=== PATIENT | female | born 1955 | race Caucasian/White ===

== ENCOUNTER 2018-07-11 14:06 | Inpatient (IN) | payer OTHER, BC ==
[~2018-07-11] VITALS: Ht 152.4 cm; Wt 69.4 kg
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
--- NOTE | 2018-07-11 15:06 | NUR ---
PT AMBULATORY TO AND FROM BATHROOM WITH STEADY GAIT, BACK IN ED GURNEY IN POSITION OF COMFORT, A/O X4, REPORTS DIZZINESS AND CHEST PAIN RESOLVING AND FEELS BETTER SINCE ARRIVAL TO ED, RESPS EVEN AND UNLABORED, SKIN WARM/DRY TO TOUCH, NO S/S OF DISTRESS NOTED. AT BEDSIDE.
[2018-07-11 15:16] LABS: BASOPHIL % 0.4 % (0-2); PLATELET COUNT 188 x10^3mcL (130-400); RED CELL DISTRIBUTION WIDTH 12.9 % (11.5-14.5)
--- NOTE | 2018-07-11 15:20 | NUR ---
PORTABLE X-RAY COMPLETED AT BEDSIDE.
[2018-07-11 15:29] LABS: CALCIUM 8.4 mg/dL (8.5-10.1); CARBON DIOXIDE 28.2 mmol/L (21-32); CHLORIDE SERUM 102 mmol/L (98-107); CREATININE SERUM 0.9 mg/dL (0.6-1.0); GFR1 > 60 mL/min; GLUCOSE SERUM 108 mg/dL (74-106); POTASSIUM SERUM 3.7 mmol/L (3.5-5.1); SODIUM SERUM 137 mmol/L (136-145)
[2018-07-11 15:33] LABS: ALBUMIN 3.9 g/dL (3.4-5.0); ALKALINE PHOSPHATASE 83 U/L (46-116); ALT/SGPT 22 U/L (14-59); AST/SGOT 19 U/L (15-37); BILIRUBIN TOTAL 0.31 mg/dL (0.20-1.00); TOTAL PROTEIN, SERUM 7.7 g/dL (6.4-8.2)
[2018-07-11] MEDS ORDERED: TEGRETOL200 MG PO (16:19)
[2018-07-11] MEDS ORDERED: NOR10 PO (16:19)
[2018-07-11] MEDS ORDERED: COZAAR100 MG PO (16:19)
[2018-07-11] MEDS ORDERED: WELSR PO (16:20)
[2018-07-11] MEDS ORDERED: PROPRANOLOL HCL40 MG PO (16:21)
[2018-07-11] MEDS ORDERED: CHOLESTYRAMINE1 PO1 (16:22)
[2018-07-11] MEDS ORDERED: PRE30 PO (16:22)
[2018-07-11 17:13] LABS: MAGNESIUM 2.3 mg/dL (1.8-2.4)
[2018-07-11 17:14] LABS: CHOLESTEROL/HDL RATIO 3.8
--- NOTE | 2018-07-11 17:32 | NUR ---
REPORT CALLED TO ANA LUBIN, PT TO BE ADMITTED TO TELE ROOM 235B. PT IN NO DISTRESS NOTED.
--- NOTE | 2018-07-11 17:46 | NUR ---
RECEIVED PT FROM ED [facility]IA [facility], CAME IN DUE TO CHEST PAIN. AAOX4. DENIES HEADACHE/DIZZINESS. ABLE TO FOLLOW COMMANDS. NO SOB NOTED, LUNG SOUNDS CTA. STATED THAT SHE HAS 2/10 ACHING MID-CHEST PAIN, NSR ON THE MONITOR. DENIES ABDOMINAL DISCOMFORT. BOWEL SOUNDS ACTIVE. IV SITE ON THE LAC IS PATENT AND INTACT. SIDE RAILS UPX2. CALL LIGHT ON REACH. FAMILY AT BEDSIDE. ENDORSED TO PRIMARY NURSE ANA FOR CONTINUITY OF CARE
[2018-07-11 17:53] VITALS: BP 165/79
[2018-07-11 17:59] VITALS: Ht 152.4 cm; Wt 69.4 kg
--- NOTE | 2018-07-11 19:16 | NUR ---
PATIENT RESTING PEACEFULLY. DENIES PAIN AT THIS TIME. PATIENT CARE ENDORSED TO BATCH ANALYST NURSE.
--- NOTE | 2018-07-11 19:48 | NUR ---
PT CURRENTLY RESTING IN BED, NO ACUTE DISTRESS. A/O X4. TELE #8 SHOWING SINUS RHYTHM, PT STATES TOLERABLE MILD CHEST PAIN 04/01. PULSES PALPABLE IN ALL EXTREMITIES, NO EDEMA NOTED. LUNG SOUNDS CTA BILATERALLY, DENIES SOB. BOWEL SOUNDS ACTIVE, LAST BM 07/10/18. VOIDING WELL. AMBULATORY. SKIN INTACT. IV PATENT AND INTACT. BED IN LOWEST POSITION, SIDE RAILS UP X2, CALL LIGHT WITHIN REACH. WILL CONTINUE TO MONITOR.
[2018-07-11 20:44] VITALS: BP 145/69; BP 153/89
--- NOTE | 2018-07-12 00:36 | NUR ---
CRITICAL LAB RESULT, TROPONIN 1.565, DR DANAE PEGUERO. PT CURRENTLY RESTING IN BED, NO ACUTE DISTRESS. WILL CONTINUE TO MONITOR.
[2018-07-12 00:39] LABS: microscopic required? YES; urine erythrocyte 1+ (NEGATIVE)
[2018-07-12 00:50] LABS: AMPHETAMINE QUAL UR NONE DETECTED (See below)
[2018-07-12 04:46] VITALS: BP 140/74
--- NOTE | 2018-07-12 06:13 | NUR ---
PT SLEPT PERIODICALLY THROUGHOUT NIGHT, NO ACUTE DISTRESS. ALL NEEDS MET AND ATTENDED TO. NO SIGNIFICANT CHANGES. IV PATENT AND INTACT. BED IN LOWEST POSITION, SIDE RAILS UP X2, CALL LIGHT WITHIN REACH. WILL ENDORSE CARE TO ONCOMING NURSE.
[2018-07-12 06:59] LABS: BASOPHIL % 0.4 % (0-2); PLATELET COUNT 193 x10^3mcL (130-400)
[2018-07-12 07:12] LABS: CALCIUM 8.9 mg/dL (8.5-10.1); CARBON DIOXIDE 28.5 mmol/L (21-32); CHLORIDE SERUM 100 mmol/L (98-107); CREATININE SERUM 0.7 mg/dL (0.6-1.0); GFR1 > 60 mL/min; GLUCOSE SERUM 89 mg/dL (74-106); POTASSIUM SERUM 3.7 mmol/L (3.5-5.1); SODIUM SERUM 139 mmol/L (136-145)
--- NOTE | 2018-07-12 08:50 | NUR ---
AAO TIMES 4. TELE # 8 SR. VS'S STABLE. NO SOB. LUNGS CTA. O2 SAT ON RA 96%. BS'S ACTIVE TIMES 4. MORALES STRONG. IV SITE CDI. COOPERATIVE AND PLEASANT. PRESENT, SUPPORTIVE. PERIPHERAL PULSES PALPABLE. NO EDEMA.
[2018-07-12 09:29] VITALS: BP 151/84
[2018-07-12 12:42] VITALS: BP 135/80
[2018-07-12 17:00] VITALS: BP 132/68
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
--- NOTE | 2018-07-12 19:25 | NUR ---
PT IS AWAKE AND ORIENTED X4. PT DENIES MCCORD OR DIZZIENSS AT THIS TIME. PT IS CALM AND COOPERATIVE WITH NURSING CARE. PT DENIES CP OR PRESSURE AT THIS TIME. PT ON TELE#8 SHOWING NSR ON THE MONITOR. PT HAS PALAPBLE PULSES BILAT ALL EXTREMITIES. SCDS IN PLACE. PT HAS CLEAR LUNG SOUNDS. RESPIRATIONS EVEN AND UNLABORED ON ROOM AIR. PT DENIES SOB. PT HAS ACTIVE BOWEL SOUNDS. PT DENIES ABD PAIN AND N/V AT THIS TIME. PT ABD SOFT, AND NONTENDER TO TOUCH. PT VOIDS FREELY ON OWN. PT AMBULATORY WITH STAEADY GAIT. PT SKIN CDI. IV TO LAC BUT SALINE LOCKED AT THSI TIME. PT DENIES PAIN OR DISCOMFORT. NO SIGNS OF DISTRESS. WILL CONTINUE TO MONITOR.
[2018-07-12 20:49] VITALS: BP 135/70
--- NOTE | 2018-07-13 | NUR ---
PT REMAINS IN BED AT THIS TIEM RESTING. NO SIGNS OF PAIN OR DISCOMFORT. NO SIGNS OF DISTRESS. WILL CONTINUE TO MONITOR.
[2018-07-13 05:14] VITALS: BP 116/76
--- NOTE | 2018-07-13 06:28 | NUR ---
PT IS CALM AND COOPERATIVE WITH NURSING CARE. PT CP OR PRESSURE. PT DENIES PAIN OR DISCOMFORT THROUGHOUT THE SHIFT. PT SLEPT THROUGHOUT THE EVENING. ALL PT NEEDS MET. NO SIGNS OF DISTRESS. WILL ENDORSE TO DAY NURSE.
[2018-07-13 07:24] LABS: BASOPHIL % 0.4 % (0-2); PLATELET COUNT 177 x10^3mcL (130-400); RED CELL DISTRIBUTION WIDTH 12.8 % (11.5-14.5)
[2018-07-13 07:42] LABS: CALCIUM 8.7 mg/dL (8.5-10.1); CARBON DIOXIDE 29.5 mmol/L (21-32); CHLORIDE SERUM 99 mmol/L (98-107); CREATININE SERUM 0.8 mg/dL (0.6-1.0); GFR1 > 60 mL/min; GLUCOSE SERUM 104 mg/dL (74-106); POTASSIUM SERUM 3.8 mmol/L (3.5-5.1); SODIUM SERUM 137 mmol/L (136-145)
--- NOTE | 2018-07-13 07:59 | NUR ---
AAO TIMES 4. TELE # 8 SR. LUNGS CTA. NO SOB. O2 SAT ON RA 96%. BS'S ACTIVE TIMES 4. MORALES STRONG. IV SITE LAC PATENT, CDI. PERIPHERAL PULSES PALPABLE. NO EDEMA. NO C/O PAIN. SKIN CDI.
[2018-07-13 12:54] VITALS: BP 116/76
[2018-07-13] MEDS ORDERED: LIPI10 PO (14:34)
[2018-07-13 16:45] VITALS: BP 116/77
--- NOTE | 2018-07-13 16:56 | NUR ---
GAVE DISCHARGE INSTRUCTIONS AND PRESCRIPTION. DC'D SL ANGIO INTACT. SHE VERBALIZED "I UNDERSTAND" TO ALL INSTRUCTIONS. PLEASANT AND COOPERATIVE.
== END 2018-07-13 16:54 | disposition home or self-care (01) | DRG 316 ==
LOC: ED 14:06 → DU 16:34
PROVIDERS: Emergency Medicine; ADMIT Family Medicine
DX: S26.91XA Contusion of heart, unspecified with or without hemopericardium, initial encounter (principal); I10 Essential (primary) hypertension; G50.0 Trigeminal neuralgia; R73.03 Prediabetes; E78.5 Hyperlipidemia, unspecified; K21.9 Gastro-esophageal reflux disease without esophagitis; Z68.30 Body mass index [BMI] 30.0-30.9, adult; V89.2XXA Person injured in unspecified motor-vehicle accident, traffic, initial encounter; Z88.0 Allergy status to penicillin; Z88.2 Allergy status to sulfonamides; Z90.710 Acquired absence of both cervix and uterus; Y93.89 Activity, other specified; Y92.488 Other paved roadways as the place of occurrence of the external cause; Y99.8 Other external cause status
CPT/HCPCS: 82962; J1650; Q0092